=== PATIENT | male | born 1980 | race Caucasian/White ===

== ENCOUNTER 2021-12-07 09:15 | Inpatient (IN) | payer MEDICAID ==
[~2021-12-07 09:15] MED LIST: Dexamethasone 4 MG/ML SDV ONE; Glycopyrrolate 0.2 MG/ML 5 ML MDV ONE; Labetalol 20 MG/4 ML Syringe ONE; Neostigmine Methylsulfate 1 MG/ML 5 ML Syringe ONE; Ondansetron 4 MG/2 ML SDV ONE; Propofol 200 MG/20 ML SDV ONE; Rocuronium 50 MG/5 ML Vial ONE; Succinylcholine 200 MG/10 ML MDV ONE; fentaNYL 100 MCG/2 ML SDV ONE; fentaNYL 250 MCG/5 ML SDV ONE
[2021-12-07] MEDS ORDERED: Celecoxib 200 MG Cap PO ONE (09:30)
[2021-12-07] MEDS ORDERED: Acetaminophen 500 MG Tab PO ONE (09:30)
[2021-12-07] MEDS ORDERED: Scopolamine 1.5 MG Transdermal Patch TOP SCH (09:30)
[2021-12-07] MEDS ORDERED: hydrALAZINE 20 MG/ML SDV ONE ×2 (09:34→13:36)
[2021-12-07] MEDS ORDERED: Lactated Ringers 1,000 ML ONE (10:14)
[2021-12-07] MEDS ORDERED: cefOXitin 2 GM Vial ONE (10:16)
[2021-12-07] MEDS ORDERED: Dextrose 5%-Lactated Ringers 1,000 ML IV SCH ×2 (10:30→16:15)
[2021-12-07] MEDS ORDERED: cefOXitin 2 GM in Sodium Chloride 0.9% 50 ML IV ONE (10:30)
[2021-12-07 11:00] LABS: ESTIMATED GFR 114 mL/min (>60)
[2021-12-07] MEDS ORDERED: Ketamine 500 MG/5 ML MDV IV SCH (11:15)
[2021-12-07] MEDS ORDERED: Ketamine 24 MG in Sodium Chloride 0.9% 19.76 ML IV SCH (11:15)
[2021-12-07] MEDS ORDERED: fentaNYL 250 MCG/5 ML SDV ONE (12:32)
[2021-12-07] MEDS ORDERED: Labetalol 20 MG/4 ML Syringe ONE (12:40)
[2021-12-07] MEDS ORDERED: Glucagon,Human Recombinant 1 MG Vial ONE (13:00)
[2021-12-07] MEDS ORDERED: Rocuronium 50 MG/5 ML Vial ONE (14:14)
[2021-12-07] MEDS ORDERED: fentaNYL 50 MCG/ML SDV IVPUSH ONE (15:10)
[2021-12-07] MEDS ORDERED: hydrOXYzine HCL 100 MG/2 ML SDV IM ONE (15:10)
[2021-12-07] MEDS ORDERED: Calcium Gluconate 10% 1 GM/10 ML SDV IVPUSH PRN (16:11)
[2021-12-07] MEDS ORDERED: Cyclobenzaprine 10 MG Tab PO PRN (16:13)
[2021-12-07] MEDS ORDERED: Lactated Ringers 1,000 ML IV SCH (16:15)
[2021-12-07] MEDS ORDERED: Labetalol 20 MG/4 ML Syringe IVPUSH PRN (17:00)
[2021-12-07] MEDS ORDERED: HYDROmorphone 0.5 MG/0.5 ML Syringe IVPUSH PRN (17:00)
[2021-12-07] MEDS ORDERED: Metoclopramide 10 MG/2 ML SDV IVPUSH PRN (17:00)
[2021-12-07] MEDS ORDERED: diphenhydrAMINE 50 MG/ML SDV IVPUSH PRN (17:00)
[2021-12-07] MEDS ORDERED: Glucagon,Human Recombinant 1 MG Vial IM PRN (17:00)
[2021-12-07] MEDS ORDERED: HYDROmorphone 1 MG/ML Syringe IV PRN (17:00)
[2021-12-07] MEDS ORDERED: traMADol 50 MG Tab PO PRN (17:00)
[2021-12-07] MEDS ORDERED: Acetaminophen 500 MG Tab PO PRN (17:00)
[2021-12-07] MEDS ORDERED: hydrOXYzine HCL 100 MG/2 ML SDV IM PRN (17:00)
[2021-12-07] MEDS ORDERED: Ondansetron 4 MG/2 ML SDV IVPUSH PRN (17:00)
[2021-12-07] MEDS ORDERED: 50% Dextrose in Water 50 ML Syringe IVPUSH PRN (17:00)
[2021-12-07] MEDS: Acetaminophen 500 MG Tab PO SCH (17:42)
[2021-12-07] MEDS: cefOXitin 2 GM in Sodium Chloride 0.9% 50 ML IV SCH (17:42)
[2021-12-07] MEDS ORDERED: Pantoprazole 40 MG Vial IVPUSH SCH (18:00)
[2021-12-07] MEDS: MVI, Adult with Vitamin K 10 ML, Thiamine 200 MG, Zinc/Copper/Manganese/Selenium 1 ML i... IV SCH ×4 (18:21)
[2021-12-07] MEDS: Insulin Lispro 100 Unit/ML 3 ML KwikPen SUBCUT SCH (22:18)
[2021-12-07] MEDS: atorvaSTATin 20 MG Tab PO SCH (22:20)
[2021-12-07] MEDS: Heparin Sodium 5,000 Units/ML Vial SUBCUT SCH (22:20)
[2021-12-08] MEDS: cefOXitin 2 GM in Sodium Chloride 0.9% 50 ML IV SCH ×5 (00:45→23:28)
[2021-12-08] MEDS: Acetaminophen 500 MG Tab PO SCH ×3 (02:45→17:26)
[2021-12-08] MEDS ORDERED: Iopamidol 612 MG/ML 50 ML SDV PO STA (03:02)
[2021-12-08] MEDS: Insulin Lispro 100 Unit/ML 3 ML KwikPen SUBCUT SCH ×4 (04:38→21:08)
[2021-12-08] MEDS: Heparin Sodium 5,000 Units/ML Vial SUBCUT SCH ×3 (05:12→21:10)
[2021-12-08] MEDS ORDERED: Ondansetron 4 MG Tab.DIS PO PRN (07:17)
[2021-12-08] MEDS ORDERED: hydrOXYzine HCl 25 MG Tab PO PRN (07:19)
[2021-12-08] MEDS ORDERED: Lactated Ringers 1,000 ML IV SCH (07:30)
[2021-12-08] MEDS: oxyCODONE 5 MG Tab PO PRN (08:09)
[2021-12-08] MEDS: Celecoxib 200 MG Cap PO SCH ×2 (09:11→20:17)
[2021-12-08] MEDS: Losartan 50 MG Tab PO SCH (09:11)
[2021-12-08] MEDS: Hydrochlorothiazide 25 MG Tab PO SCH (09:11)
[2021-12-08] MEDS: SCOPOLAMINE PATCH CHECK TOP SCH (09:11)
[2021-12-08] MEDS: Pantoprazole 40 MG Tab.CR PO SCH (09:12)
[2021-12-08] MEDS: Metoprolol Succinate 50 MG Tab.ER PO SCH (09:12)
[2021-12-08] MEDS: MVI, Adult with Vitamin K 10 ML, Thiamine 200 MG, Zinc/Copper/Manganese/Selenium 1 ML i... IV SCH ×4 (15:12)
[2021-12-08] MEDS: atorvaSTATin 20 MG Tab PO SCH (20:17)
[2021-12-09] MEDS: Acetaminophen 500 MG Tab PO SCH (02:24)
[2021-12-09] MEDS: Insulin Lispro 100 Unit/ML 3 ML KwikPen SUBCUT SCH ×2 (04:27→10:56)
[2021-12-09] MEDS: Heparin Sodium 5,000 Units/ML Vial SUBCUT SCH (04:44)
[2021-12-09] MEDS: Celecoxib 200 MG Cap PO SCH (08:04)
[2021-12-09] MEDS: Losartan 50 MG Tab PO SCH (08:05)
[2021-12-09] MEDS: Pantoprazole 40 MG Tab.CR PO SCH (08:05)
[2021-12-09] MEDS: Hydrochlorothiazide 25 MG Tab PO SCH (08:05)
[2021-12-09] MEDS: Metoprolol Succinate 50 MG Tab.ER PO SCH (08:11)
[2021-12-09] MEDS: oxyCODONE 5 MG Tab PO PRN (08:12)
[2021-12-09] MEDS: SCOPOLAMINE PATCH CHECK TOP SCH (08:21)
[2021-12-09] MEDS ORDERED: Cyanocobalamin (Vitamin B12) 1,000 MCG/ML SDV IM ONE (09:00)
== END 2021-12-09 11:10 | disposition home or self-care (01) | DRG 621 ==
LOC: EDSTATUS 09:15 → JP.MS 09:42 → JP.SDS 09:42 → JP.ICU 15:45
PROVIDERS: ADMIT Surgery; ATTEND Surgery
PROC: 0D194ZB Bypass Duodenum to Ileum, Percutaneous Endoscopic Approach (ICD-10-PCS; principal; 2021-12-07)
PROC: 0FB24ZX Excision of Left Lobe Liver, Percutaneous Endoscopic Approach, Diagnostic (ICD-10-PCS; 2021-12-07)
PROC: 0BQT4ZZ Repair Diaphragm, Percutaneous Endoscopic Approach (ICD-10-PCS; 2021-12-07)
DX: E66.01 Morbid (severe) obesity due to excess calories (principal); Z68.42 Body mass index [BMI] 45.0-49.9, adult; I10 Essential (primary) hypertension; E78.2 Mixed hyperlipidemia; K21.9 Gastro-esophageal reflux disease without esophagitis; G47.33 Obstructive sleep apnea (adult) (pediatric); E11.9 Type 2 diabetes mellitus without complications; R16.0 Hepatomegaly, not elsewhere classified; K44.9 Diaphragmatic hernia without obstruction or gangrene; Z87.891 Personal history of nicotine dependence; Z85.528 Personal history of other malignant neoplasm of kidney
CPT/HCPCS: 36415; 74240; 74240-26; 80053; 82947; 83735; 83880; 84100; 85027; 86850; 86900; 86901; 88307; 88313; 93005; 93010; A9270-GY; C9113; J0171; J0330; J0360; J0694; J1100; J1610; J1644; J2405; J2704; J2710; J2795; J3010; J3410; J3411; J3420; J3490; J7120; J7121; Q9967